=== PATIENT | male | born 1965 | race Caucasian/White ===

== ENCOUNTER 2022-05-07 23:31 | Emergency (ER) | payer MEDICARE, MEDICAID, SELFPAY ==
[2022-05-07 23:50] VITALS: BP 191/101; PULSE 94; RESP 18; O2SAT 99; BMI 27.8
[2022-05-07 23:55] VITALS: PULSE 90; RESP 26; O2SAT 98
[2022-05-08] VITALS: PULSE 88; RESP 31; O2SAT 97
--- NOTE | 2022-05-08 00:05 | DI.RAD.S_ITS ---
PROCEDURE: XR CHEST 1V INDICATIONS: chest pain TECHNIQUE: One view of the chest was acquired. COMPARISON: None. FINDINGS: Surgical changes and devices: None. Lungs and pleura: Lungs are clear except for focal opacification at the retrocardiac left lower lobe, medial border of the diaphragm area.. No pleural effusions or pneumothorax. Mediastinum: Mediastinal contours appear normal. Heart size is normal. Bones and chest wall: No suspicious bony lesions. Overlying soft tissues appear unremarkable. IMPRESSION: Reduced inspiratory volume, resultant crowding of the bronchovascular markings. There is a suspected area of pneumonia medial left lower lobe behind the heart. Dictated by: Jacobo Garcia M.D. on 05/08/2022 at 0:22 Approved by: Jacobo Garcia M.D. on 05/08/2022 at 0:23
[2022-05-08 00:19] LABS: Alanine Aminotransferase 31 IU/L (<50); Albumin 2.2 g/dL (3.5-5.0); Albumin Globulin Ratio 0.7 (1.0-2.8); Alkaline Phosphatase 126 U/L (38-126); Aspartate Aminotransferase 44 IU/L (17-59); Bilirubin Total 0.9 mg/dL (0.2-1.3); Blood Urea Nitrogen 40 mg/dL (9-20); Calcium 7.4 mg/dL (8.4-10.2); Carbon Dioxide 22 mmol/L (22-32); Chloride 111 mmol/L (98-107); Creatine Kinase 181 U/L (55-170); Estimated Glomerular Filt Rate 31 mL/min (>60); Globulin 3.2 g/dL (1.7-4.1); Glucose 88 mg/dL (70-100); Lipase 191 U/L (23-300); Magnesium 1.9 mg/dL (1.6-2.3); Potassium 3.9 mmol/L (3.4-5.1); Sodium 139 mmol/L (137-145); Total Protein 5.4 g/dL (6.3-8.2)
[2022-05-08 00:22] LABS: Add Manual Diff / Slide Review NO; Basophils Absolute Auto 0 /uL (0-100); Basophils Percent Auto 0.7 % (0-2); Eosinophils Absolute Auto 300 /uL (0-450); Eosinophils Percent Auto 5.3 % (2-4); Hematocrit 29.9 % (41-53); Hemoglobin 10.8 g/dL (13.5-17.5); Lymphocytes Absolute Auto 1100 /uL (1100-4500); Lymphocytes Percent Auto 18.8 % (25-40); Mean Corpuscular Hemoglobin 32.1 PG (26-34); Monocytes Absolute Auto 600 /uL (0-900); Monocytes Percent Auto 10.7 % (3-14); Neutrophils Absolute Auto 3800 /uL (1500-7000); Neutrophils Percent Auto 64.5 % (50-75); Platelet Count 184 X10^3/uL (150-400); Red Blood Cell Count 3.36 X10^6/uL (4.5-5.9); Red Cell Distribution Width 13.8 % (11.6-14.8); White Blood Cell Count 5.8 X10^3/uL (4.5-11.0)
[2022-05-08 00:28] LABS: NT-proBNP (BNP-Adult 18+) 89 pg/mL (<125)
[2022-05-08 00:30] VITALS: PULSE 82; RESP 22; O2SAT 98
[2022-05-08 00:30] LABS: Troponin I 0.021 ng/mL (0.01-0.034)
[2022-05-08 00:34] LABS: CKMB % Relative Index 3.9 % (1.5-5.0); Creatine Kinase MB 6.98 ng/mL (<2.37); HEMOLYSIS 29 (0-50)
--- NOTE | 2022-05-08 00:48 | ED_ITS ---
HPI - Chest Pain General Chief Complaint: Chest Pain Stated Complaint: chest pain/both hands/legs swelling Time Seen by Provider: 05/07/22 23:54 Source: patient Mode of arrival: Ambulatory Limitations: no limitations Limitations: no limitations History of Present Illness HPI narrative: Patient is a 48-year-old male who is here for evaluation of chest discomfort. He states that earlier today he had 2 separate episodes where he had very sharp chest pain in the left side of his chest that lasted for seconds and then completely resolved. He also stated he was having cramping in his left thumb left forearm that is similar to the cramping he is had in his legs. He was concerned that maybe he was having a stroke. He does have a history of high blood pressure but has not been on any blood pressure medications for approximately 6 years. He states that he read somewhere that blood pressure medications were bad for him so he stopped taking them. 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 Related Data Allergies Allergy/AdvReac Type Severity Reaction Status Date / Time No Known Drug Allergies Allergy Verified 05/07/22 23:53 Review of Systems Constitutional Constitutional: Reports system reviewed and no additional complaints, except as documented Cardiovascular Cardiovascular: Reports system reviewed and no additional complaints, except as documented Respiratory Respiratory: Reports system reviewed and no additional complaints, except as documented Gastrointestinal Gastrointestinal: Reports system reviewed and no additional complaints, except as documented Integumentary/Breasts Skin/Breast: Reports system reviewed and no additional complaints, except as documented Neurologic Neurologic: Reports system reviewed and no additional complaints, except as documented Hematologic/Lymphatic On Anticoagulants: No Patient History Medical History Drug abuse tobacco type: smokeless tobacco alcohol intake frequency: 3 or more drinks per day Alcohol type: beer Substance Use Type: marijuana, IV drugs and methamphetamine Exam Initial Vital Signs Initial Vital Signs: Vital Signs Pulse Rate 94 H 05/07/22 23:50 Respiratory Rate 18 05/07/22 23:50 Blood Pressure 191/101 H 05/07/22 23:50 Pulse Oximetry 99 05/07/22 23:50 Oxygen Delivery Method 05/07/22 23:50 HENCA Head: normal to inspection and normocephalic Resp Effort & Inspection: normal respiratory effort Auscultation: clear to auscultation bilaterally Cardio Rate: regular rate Rhythm: regular rhythm GI Inspection: normal to inspection Skin General: no rashes or lesions noted Neuro General: patient alert, patient awake and moves all extremities Speech: speech normal Gait: normal gait Sensory Exam: no sensory deficits noted Extrem General: edema Course Orders Ordered: ED Orders 05/08/22 00:05 XR chest 1V Stat Complete Blood Count AUTO DIFF Stat Comprehensive Metabolic Panel Stat Lipase Stat Magnesium Stat Troponin & CK Cardiac Panel Stat EKG-12 Lead Stat 05/08/22 00:06 BNP [NT-proBNP (BNP-Adult 18+)] Stat Vital Signs Vital signs: Vital Signs - 8 hr 05/07/22 23:50 05/07/22 23:55 05/08/22 00:00 Pulse Rate 94 H 90 88 Respiratory Rate 18 26 H 31 H Blood Pressure 191/101 H Pulse Oximetry 99 98 97 Oxygen Delivery Method Room Air 05/08/22 00:30 05/08/22 01:00 05/08/22 01:04 Pulse Rate 82 88 89 Respiratory Rate 22 23 23 Blood Pressure Pulse Oximetry 98 99 100 Oxygen Delivery Method 05/08/22 01:04 05/08/22 01:30 Pulse Rate Respiratory Rate Blood Pressure 185/90 H Pulse Oximetry Oxygen Delivery Method Room Air MDM - Chest Pain Lab Data Attestation: I reviewed the patient's lab results. Result diagrams: 05/07/22 23:45 05/07/22 23:45 Labs: Lab Results 05/07/22 05/07/22 05/07/22 Range/Units 23:45 23:45 23:45 WBC 5.8 (4.5-11.0) X10^3/uL RBC 3.36 L (4.5-5.9) X10^6/uL Hgb 10.8 L (13.5-17.5) g/dL Hct 29.9 L (41-53) % MCV 89.0 (80-100) fL MCH 32.1 (26-34) PG MCHC 36.0 (30-36) % RDW 13.8 (11.6-14.8) % Plt Count 184 (150-400) X10^3/uL Neut % (Auto) 64.5 (50-75) % Lymph % (Auto) 18.8 L (25-40) % [place] % (Auto) 10.7 (3-14) % Eos % (Auto) 5.3 H (2-4) % Baso % (Auto) 0.7 (0-2) % Neut # (Auto) 3800 (8246-8112) /uL Lymph # (Auto) 1100 (7577-4241) /uL [place] # (Auto) 600 (0-900) /uL Eos # (Auto) 300 (0-450) /uL Baso # (Auto) 0 (0-100) /uL Sodium 139 (137-145) mmol/L Potassium 3.9 (3.4-5.1) mmol/L Chloride 111 H (98-107) mmol/L Carbon Dioxide 22 (22-32) mmol/L BUN 40 H (9-20) mg/dL Creatinine 2.35 H (0.66-1.25) mg/dL Estimated GFR 31 L (>60) mL/min BUN/Creatinine Ratio 17.0 (6-22) Glucose 88 (70-100) mg/dL Calcium 7.4 L (8.4-10.2) mg/dL Magnesium 1.9 (1.6-2.3) mg/dL Total Bilirubin 0.9 (0.2-1.3) mg/dL AST 44 (17-59) IU/L ALT 31 (<50) IU/L Alkaline Phosphatase 126 (38-126) U/L Total Creatine Kinase 181 H (55-170) U/L CK-MB (CK-2) 6.98 H (<2.37) ng/mL CK-MB (CK-2) Rel Index 3.9 (1.5-5.0) % Troponin I 0.021 (0.01-0.034) ng/mL NT-Pro-B Natriuret Pep 89 (<125) pg/mL Total Protein 5.4 L (6.3-8.2) g/dL Albumin 2.2 L (3.5-5.0) g/dL Globulin 3.2 (1.7-4.1) g/dL Albumin/Globulin Ratio 0.7 L (1.0-2.8) Lipase 191 (23-300) U/L Imaging Data Chest x-ray: Radiologist's Impression: [address] [address] XRay Report Signed Patient: Patrick House MR#: [id number] : 1965 Acct:[id number] Age/Sex: 56 / M Date of Service: 05/08/22 Loc: ED Accession Number: [id number] ?? Procedure: XR chest 1V Ordering Provider: Jose Munguia D.O. PROCEDURE:? XR CHEST 1V ? INDICATIONS:? chest pain ? TECHNIQUE:? One view of the chest was acquired.? ? COMPARISON:? None. ? FINDINGS:? ? Surgical changes and devices:? None.? ? Lungs and pleura:? Lungs are clear except for focal opacification at the retrocardiac left lower lobe, medial border of the diaphragm area..? No pleural effusions or pneumothorax.? ? Mediastinum:? Mediastinal contours appear normal.? Heart size is normal.? ? Bones and chest wall:? No suspicious bony lesions.? Overlying soft tissues appear unremarkable.? ? IMPRESSION:? Reduced inspiratory volume, resultant crowding of the bronchovascular markings.? There is a suspected area of pneumonia medial left lower lobe behind the heart. ? ? Dictated by: Jacobo Garcia M.D. on 05/08/2022 at 0:22 ? ? Approved by: Jacobo Garcia M.D. on 05/08/2022 at 0:23?? ECG Data Attestation: I personally reviewed and interpreted this ECG as follows: Interpretation: Sinus rhythm Ventricular rate of 58 Normal Normal QRS Normal QTC No ST T wave changes MDM Narrative Medical decision making narrative: Patient clinically does not have pneumonia. Clear lung exam, not tachypneic, no productive cough, no fevers, clear lung exam. No indication for antibiotics. His EKG is unremarkable. He had 2 distinct episodes of sharp pain that lasts seconds the left side of his chest. Low suspicion for ACS. The cramping that he had in his left arm is not consistent with CVA/TIA. He does have cramping in his lower extremities. Patient is hypertensive. He does have an elevation in his creatinine and decrease in his GFR. Unsure if this is baseline for him. He is also having some lower extremity swelling. We did discuss his blood pressure. Offer blood pressure medication but he declined. He states he was going to talk with his primary doctor. Told him than his elevation in blood pressure could be causing his kidney issues and also his lower extremity swelling. He expressed understanding of this but still would like to wait and talk with his primary doctor. No further workup required in the emergency department. He was given return precautions. He expressed understanding and agreement. I also have a high suspicion that his meth use is contributing to his baseline health status. Discharge Plan Departure Patient Disposition: Home Clinical Impression: Hypertension, Swelling of extremity, Kidney disease Instructions: High Blood Pressure Activity Restrictions/Additional Instructions: I do recommend that on Monday you contact your primary doctor for follow-up. Your blood pressure is elevated and your kidney function show signs that maybe your blood pressure needs to be better controlled. This very well can be causing your leg swelling as well. Return to the emergency department for any new symptoms. Referrals: Ankita Coats MD [Primary Care Provider] - Visit Report Forms: Patient Portal/API
[2022-05-08 01:00] VITALS: PULSE 88; RESP 23; O2SAT 99
[2022-05-08 01:04] VITALS: BP 185/90; PULSE 89; RESP 23; O2SAT 100
== END 2022-05-08 01:20 | disposition home or self-care (01) ==
PROVIDERS: Emergency Provider Emergency Medicine; PCP Family Medicine
DX: I10 Essential (primary) hypertension (principal); R60.9 Edema, unspecified; N28.9 Disorder of kidney and ureter, unspecified; R07.9 Chest pain, unspecified
CPT/HCPCS: 36415; 71045; 80053; 82550; 82553; 83690; 83735; 83880; 84484; 85025; 93005; 99284